=== PATIENT | female | born 1995 | race Two or more races ===

== ENCOUNTER 2024-09-15 12:29 | Emergency (ER) | payer MEDICAID ==
[~2024-09-15] VITALS: Ht 149.9 cm; Wt 86.2 kg
[2024-09-15 12:35] VITALS: BP 143/84; TEMP 98.3
[2024-09-15 12:53] LABS: APPEARANCE,URINE CLEAR (CLEAR); BILIRUBIN,URINE NEGATIVE (NEGATIVE); BLOOD, URINE 3+ Ery/uL (NEGATIVE); COLOR,URINE YELLOW (YELLOW); KETONES,URINE NEGATIVE (NEGATIVE); LEUKOCYTE ESTERASE ,URINE TRACE (NEGATIVE); NITRITE, URINE NEGATIVE (NEGATIVE); PH,URINE 7.5 (5.0-8.0); PROTEIN,URINE NEGATIVE (NEGATIVE); UGLUCOSE NEGATIVE (NEGATIVE); UROBILINOGEN,URINE 0.2 EU/dL (0.2)
[2024-09-15] MEDS ORDERED: CEPH-570 PO (12:59)
[2024-09-15 13:10] VITALS: O2SAT 99
[2024-09-15 13:20] LABS: ADD URINE CULTURE NO; BACTERIA,URINE Rare /HPF (None Seen); RBC,URINE 21-50 /HPF (0-2); WBC,URINE 0-2 /HPF (0-3)
== END 2024-09-15 13:13 | disposition home or self-care (01) ==
LOC: ER 12:39
DX: N39.0 Urinary tract infection, site not specified (principal); R10.2 Pelvic and perineal pain; R30.0 Dysuria
CPT/HCPCS: 81001; 84703-TC